=== PATIENT | female | born 1985 | race Asian ===

== ENCOUNTER 2017-07-02 13:35 | Inpatient (IN) | payer OTHER ==
[2017-07-02] MEDS ORDERED: CITRIC ACID/SODIUM CITRATE 30 ML UNIT-DOSE CUP PO ONE (14:45)
[2017-07-02] MEDS ORDERED: ELECTROLYTE-148 SOLN 500 ML IV SCH (14:45)
[2017-07-02 14:56] VITALS: BMI 30.9
[2017-07-02 15:13] LABS: BASO % 0.3 % (0-2.0); EOS % 0.8 % (0-4.5); HEMATOCRIT 37.8 % (32.4-45.2); HEMOGLOBIN 13.4 GM/dL (10.7-15.3); LYMPH % 16.6 % (8-40); MCH 32.1 pg (25.7-33.7); MCHC 35.5 g/dl (32.0-36.0); MEAN CELL VOLUME 90.5 fl (80-96); MONO % 8.3 % (3.8-10.2); PLATELET COUNT 222 K/MM3 (134-434); RBC 4.18 M/mm3 (3.60-5.2); WHITE BLOOD COUNT 9.5 K/mm3 (4.0-10.0)
[2017-07-02] MEDS: ELECTROLYTE-148 SOLN 1,000 ML IV SCH (15:30)
[2017-07-02 15:31] LABS: INR 0.95 (0.82-1.09); PROTHROMBIN TIME (PATIENT) 10.7 SEC (9.7-13.0)
[2017-07-02 15:34] LABS: ACTIVATED PTT 27.1 SECONDS (26.9-34.4)
[2017-07-02 16:14] LABS: ANION GAP 8 (8-16); BLOOD UREA NITROGEN 6 mg/dL (7-18); CALCIUM 8.3 mg/dL (8.5-10.1); CHLORIDE 107 mmol/L (98-107); CO2 22 mmol/L (21-32); CREATININE 0.4 mg/dL (0.55-1.02); GLUCOSE,RANDOM 61 mg/dL (74-106); POTASSIUM 3.8 mmol/L (3.5-5.1); SODIUM 137 mmol/L (136-145)
[2017-07-02] MEDS ORDERED: morphine SULFATE/Preservative Free 0.5 MG/ML (1cc Syringe) ONE (16:55)
[2017-07-02] MEDS ORDERED: BUPIVACAINE 0.75% IN DEXTROSE/PF 2ML AMPULE NR ONE (16:59)
[2017-07-02] MEDS ORDERED: ceFAZolin SODIUM 1 GM VIAL ONE (17:13)
[2017-07-02] MEDS ORDERED: OXYTOCIN 10 UNITS/ML VIAL ONE (17:21)
[2017-07-02] MEDS ORDERED: ONDANSETRON 4 MG/2 ML VIAL IVPUSH PRN (17:38)
[2017-07-02 18:07] LABS: ARTERIAL BLOOD GAS PCO2 41.7 mmHg (35-45); ARTERIAL BLOOD GAS pH 7.37 (7.35-7.45)
[2017-07-02] MEDS ORDERED: OXYTOCIN 20 UNITS in 0.9% NS 20 UNIT/1,000 ML INFUS.BAG IV ONE (18:08)
[2017-07-02 18:13] LABS: VENOUS PH 7.37 (7.32-7.42)
[2017-07-02 18:14] LABS: VENOUS PC02 42.2 mmHg (38-52); VENOUS PO2 28.3 mmHg (28-48)
[2017-07-02 18:19] LABS: ARTERIAL BLD GAS O2 SATURATION 59.5 % (90-98.9); ARTERIAL BLOOD GAS PO2 27.9 mmHg (80-100)
[2017-07-02] MEDS ORDERED: OXYTOCIN 20 UNITS in 0.9% NS 20 UNIT/1,000 ML INFUS.BAG IV SCH ×2 (18:45→22:30)
[2017-07-02] MEDS ORDERED: METHYLERGONOVINE MALEATE 0.2 MG/1 ML AMP IM PRN (20:57)
--- NOTE | 2017-07-02 21:00 | OP ---
DATE OF OPERATION: 07/02/2017 PREOPERATIVE DIAGNOSES: Macrosomia, size greater than dates, and intrauterine at 40 weeks. OPERATION: Primary low transverse section. POSTOPERATIVE DIAGNOSIS: Live female infant. SURGEON: Jenae Clarke MD POSTAL SUPERINTENDENT: JOVAN Woods; unavailable. PROCEDURE: Patient was taken to the operating room, placed in supine position, prepped and draped in the usual sterile fashion. A timeout was performed in accordance with regulation. A Pfannenstiel skin incision was made with a scalpel. Cautery was then used to go through layers of abdominal wall to the level of the fascia. Fascia was cut in the midline, and cautery was then used to open the fascia in the following fashion. Ollie was then used to bluntly and sharply dissect the rectus muscle off the fascia. Muscles split in the midline. Peritoneal cavity was then entered and carried upward and downward. Bladder retractor was then placed. Vesicouterine reflection was then entered. Bladder was bluntly dissected out of the operative field. Scalpel was then used to make a low transverse uterine incision. Incision was carried upward using bandage scissors. A live female was delivered in OT position. Nose and mouth suction performed. Meconium noted. Shoulders were delivered without difficulty. Delayed cord clamping. Cord pH sampling done and cord pH taken. Cord blood sampling done. Placenta was manually extracted from the uterus. Infant was handed to the curer acid drum. Uterus exteriorized and cleaned with clean lap pads. Two myomas were noted on the uterus and approximately 3 cm in size, one anterior and one posterior on the right side. Tubes and ovaries noted to be normal. Incision was then closed using 0 Biosyn suture, first layer of continuous and locking, second layer imbricating the first layer. Hemostasis was achieved. Uterus interiorized. Abdominal cavity cleaned with clean lap pads. Peritoneum closed using 0 Biosyn suture. Muscles approximated in the midline using 0 Biosyn suture. Fascia was then closed using 0 Vicryl suture in 2 parts. Subcutaneous was then closed with interrupted using 0 Biosyn suture. Skin was then closed using 3-0 Vicryl in subcuticular fashion. Wound was washed and dressed. Patient tolerated the procedure well. ESTIMATED BLOOD LOSS: 600 mL JENAE CLARKE M.D. [id number]
[2017-07-02] MEDS: ACETAMINOPHEN 325 MG TABLET (FP) PO PRN (21:45)
[2017-07-02] MEDS ORDERED: IBUPROFEN 800 MG/8 ML IJ IVPB PRN (22:29)
--- NOTE | 2017-07-02 22:49 | HP ---
Past Medical History - Primary Care Physician PCP:: Jenae Clarke - Admission Chief Complaint: 32 yo EDC 06/20 with size greater than dates and desires Section History Source: Patient - Past Medical History ...: 2 ...Para: 0 ...Term: 0 ...: 0 ...Spon : 0 ...Induced : 1 ...Multiple Gestation: 0 ...LMP: 09/14/16 ... Weeks Gestation by Dates: 41.4 ...EDC by Dates: 06/21/17 ...EDC by Sono: 06/30/17 - Past Surgical History Past Surgical History: Yes: None Hx Myomectomy: No Hx Transabdominal Cerclage: No - Smoking History Smoking history: Never smoked Have you smoked in the past 12 months: No Aproximately how many cigarettes per day: 1 - Alcohol/Substance Use Hx Alcohol Use: No History of Substance Use: reports: None - Social History Usual Living Arrangement: Yes: With Spouse History of Recent Travel: No Home Medications - Allergies Allergies/Adverse Reactions: Allergies Allergy/AdvReac Type Severity Reaction Status Date / Time No Known Allergies Allergy Verified 07/02/17 14:56 - Home Medications Home Medications: Ambulatory Orders Pnv No.95/Ferrous Fum/Folic AC [ Vitamin Tablet] 1 each PO DAILY Ranitidine HCl [Zantac] 150 mg PO DAILY 07/02/17 Review of Systems - Review of Systems Constitutional: reports: No Symptoms Eyes: reports: No Symptoms HENT: reports: No Symptoms Neck: reports: No Symptoms Cardiovascular: reports: No Symptoms Respiratory: reports: No Symptoms Gastrointestinal: reports: No Symptoms Genitourinary: reports: No Symptoms Breasts: reports: No Symptoms Reported Musculoskeletal: reports: No Symptoms Integumentary: reports: No Symptoms Neurological: reports: No Symptoms Endocrine: reports: No Symptoms Hematology/Lymphatic: reports: No Symptoms Psychiatric: reports: No Symptoms Physical Exam - Maternity Vital Signs: Vital Signs Temperature 97.6 F 07/02/17 18:50 Pulse Rate 80 07/02/17 18:50 Respiratory Rate 18 07/02/17 18:50 Blood Pressure 96/54 07/02/17 18:50 O2 Sat by Pulse Oximetry (%) 96 07/02/17 18:50 Constitutional: Yes: Well Nourished, No Distress Neck: Yes: WNL Cardiovascular: Yes: WNL Lungs: Clear to auscultation - Abdominal Exam/OB Fundal Height: 41 Number of Fetuses: Single Presentation: Vertex Category: I Decelerations: None - Vaginal Exam/OB Vaginal Bleediing: No Amniotic Membrane Status: Ruptured Amniotic Fluid: Yes: Meconium Stained Presentation: Vertex/Position - Physical Exam Musculoskeletal: Yes: WNL Extremities: Yes: WNL Edema: No Psychiatric: Yes: WNL, Alert, Oriented - Labs Lab Results: CBC, BMP 07/02/17 14:10 07/02/17 14:10 Hemorrhage Risk Assessment - Risk Factors Medium Risk Factors: Yes: EFW greater than 4000g Risk Score: 1 Risk Level: Medium Risk Problem List - Problems (1) Size of fetus inconsistent with dates in third trimester Code(s): O26.843 - UTERINE SIZE-DATE DISCREPANCY, THIRD TRIMESTER (2) 40 weeks gestation of Code(s): Z3A.40 - 40 WEEKS GESTATION OF Assessment/Plan MAcosomia SIze greater than dates IUP at 40 weeks Plan Primary Section
--- NOTE | 2017-07-02 22:57 | OP ---
Operative Note - Note: Operative Date: 07/02/17 Pre-Operative Diagnosis: Macrosomia. size greater than dates. IUP at 40 week Operation: Primary Low transverse Section Findings: Live female infant serosal myomas noted anterior and posterior - 3 cm X2 Post-Operative Diagnosis: Same as Pre-op Surgeon: Jenae Clarke Dialysis Chief Equipment Technician: Ashish Thomas Anesthesia: General, Spinal Estimated Blood Loss (mls): 600 Operative Report Dictated: Yes
[2017-07-02] MEDS ORDERED: WITCH HAZEL 50% (TUCKS) 40 PAD/JAR PAD TP PRN (22:58)
[2017-07-02] MEDS ORDERED: BENZOCAINE 28 GM HEMORRHOIDAL OINTMENT PR PRN (22:58)
[2017-07-02] MEDS ORDERED: diphenhydrAMINE HCL 25 MG CAPSULE (FP) PO PRN (22:58)
[2017-07-02] MEDS ORDERED: BENZOCAINE 20% 57 GM BOTTLE TP PRN (22:58)
[2017-07-03] MEDS ORDERED: OXYTOCIN 20 UNITS in 0.9% NS 20 UNIT/1,000 ML INFUS.BAG IV ONE (01:34)
[2017-07-03] MEDS: ELECTROLYTE-148 SOLN 1,000 ML IV SCH (02:03)
[2017-07-03] MEDS: IBUPROFEN 600 MG TABLET (FP) PO PRN ×3 (02:13→22:26)
[2017-07-03] MEDS: ACETAMINOPHEN 325 MG TABLET (FP) PO PRN ×5 (02:14→22:28)
--- NOTE | 2017-07-03 02:38 | PN ---
Post Progress Note - Subjective Subjective: 32 yo Para 1 status post primary . Doing well. Post Day: 1 Type of Delivery: Primary C/S Vital Signs: Vital Signs Temperature 98.3 F 07/02/17 22:00 Pulse Rate 90 07/02/17 22:00 Respiratory Rate 18 07/03/17 01:00 Blood Pressure 112/71 07/02/17 22:00 O2 Sat by Pulse Oximetry (%) 96 07/02/17 18:50 Breast Exam: Yes: Soft Uterus: Yes: Fundus Firm Incision: Yes: Dressing dry and intact Abdomen/GI: Yes: Abdomen soft Lochia: Yes: Rubra Lochia, amount: Small Extremities: Yes: Calves non-tender Activity: Ambulating - Labs Labs: CBC WBC 9.5 K/mm3 (4.0-10.0) D 07/02/17 14:10 RBC 4.18 M/mm3 (3.60-5.2) 07/02/17 14:10 Hgb 13.4 GM/dL (10.7-15.3) 07/02/17 14:10 Hct 37.8 % (32.4-45.2) 07/02/17 14:10 MCV 90.5 fl (80-96) 07/02/17 14:10 MCH 32.1 pg (25.7-33.7) 07/02/17 14:10 MCHC 35.5 g/dl (32.0-36.0) 07/02/17 14:10 RDW 14.0 % (11.6-15.6) D 07/02/17 14:10 Plt Count 222 K/MM3 (134-434) D 07/02/17 14:10 MPV 8.0 fl (7.5-11.1) 07/02/17 14:10 Neutrophils % 74.0 % (42.8-82.8) D 07/02/17 14:10 Lymphocytes % 16.6 % (8-40) D 07/02/17 14:10 Monocytes % 8.3 % (3.8-10.2) 07/02/17 14:10 Eosinophils % 0.8 % (0-4.5) 07/02/17 14:10 Basophils % 0.3 % (0-2.0) 07/02/17 14:10 Problem List - Problems (1) Status post primary low transverse section Code(s): Z98.891 - HISTORY OF UTERINE SCAR FROM PREVIOUS SURGERY Assessment/Plan Status post primary Ambulation Analgesia as needed Continue routine post op care
[2017-07-03] MEDS: SIMETHICONE 80 MG TAB.CHEW (FP) PO PRN ×4 (07:22→22:25)
[2017-07-03 08:04] LABS: BASO % 0.2 % (0-2.0); EOS % 1.4 % (0-4.5); HEMATOCRIT 32.3 % (32.4-45.2); HEMOGLOBIN 11.4 GM/dL (10.7-15.3); LYMPH % 13.3 % (8-40); MCHC 35.3 g/dl (32.0-36.0); MEAN CELL VOLUME 90.5 fl (80-96); MEAN PLT VOLUME 7.7 fl (7.5-11.1); MONO % 9.8 % (3.8-10.2); NEUT % 75.3 % (42.8-82.8); PLATELET COUNT 189 K/MM3 (134-434); RBC 3.57 M/mm3 (3.60-5.2); RDW 13.8 % (11.6-15.6)
[2017-07-03] MEDS: PRENATAL VITAMINS W/ FOLIC ACID TABLET (FP) PO SCH (09:40)
[2017-07-03] MEDS ORDERED: BISACODYL 10 MG SUPP.RECT RC PRN (10:00)
[2017-07-03] MEDS ORDERED: oxyCODONE HCL 5 MG TABLET PO PRN ×3 (11:59→22:58)
[2017-07-03] MEDS ORDERED: oxyCODONE HCL 5 MG TABLET ONE (12:01)
[2017-07-03] MEDS: oxyCODONE HCL 5 MG TABLET PO PRN (12:03)
--- NOTE | 2017-07-03 15:03 | PN ---
Progress Note (short form) - Note Progress Note: Anesthesia postop note 32 y/o F s/p spinal anesthesia for section, duramorph for postop pain management POD#1, vss, aaox3, no complaints, pain well controlled. No anesthesia complications.
[2017-07-03] MEDS: SENNOSIDES/DOCUSATE COMBO (SENNA PLUS) TABLET (UD) PO SCH (22:29)
[2017-07-04] MEDS: ACETAMINOPHEN 325 MG TABLET (FP) PO PRN ×4 (05:12→20:44)
[2017-07-04] MEDS: IBUPROFEN 600 MG TABLET (FP) PO PRN ×4 (05:12→20:43)
[2017-07-04] MEDS: SIMETHICONE 80 MG TAB.CHEW (FP) PO PRN ×3 (05:13→20:39)
--- NOTE | 2017-07-04 07:28 | PN ---
Progress Note (SOAP) - Current Medications Current Medications: Active Medications Acetaminophen (Tylenol -) 650 mg PO Q4H PRN PRN Reason: PAIN 6-10 Last Admin: 07/04/17 05:12 Dose: 650 mg Benzocaine (Americaine 20% Sherman -) 1 spray TP PRN PRN PRN Reason: Pain - Topical Benzocaine (Americaine Ointment -) 1 applic MI PRN PRN PRN Reason: Pain - Topical Bisacodyl (Dulcolax Suppository -) 10 mg RC DAILY PRN PRN Reason: CONSTIPATION Diphenhydramine HCl (Benadryl Injection -) 25 mg IVPUSH Q4H PRN PRN Reason: Pruritis Diphenhydramine HCl (Benadryl -) 25 mg PO Q6H PRN PRN Reason: FOR ITCHING Parenteral Electrolytes (Plasma-Lyte 148 -) 1,000 mls @ 125 mls/hr IV [facility] Last Admin: 07/03/17 02:03 Dose: 125 mls/hr Oxytocin/Sodium Chloride (Normal Saline+20 Units Oxytocin -) 20 unit in 1,000 mls @ 125 mls/hr IV [facility] Last Admin: 07/02/17 18:45 Dose: 125 mls/hr Oxytocin/Sodium Chloride (Normal Saline+20 Units Oxytocin -) 20 unit in 1,000 mls @ 125 mls/hr IV [facility] Last Admin: 07/02/17 22:30 Dose: Not Given Ibuprofen (Motrin -) 600 mg PO Q4H PRN PRN Reason: PAIN LEVEL 1-5 Last Admin: 07/04/17 05:12 Dose: 600 mg Ibuprofen (Caldolor Injection -) 800 mg IVPB Q8H PRN PRN Reason: FEVER Ibuprofen (Motrin -) 600 mg PO Q4H PRN PRN Reason: PAIN LEVEL 1 - 3 Methylergonovine Maleate (Methergine Injection -) 0.2 mg IM Q4H PRN PRN Reason: EXCESSIVE BLEEDING (L&D) Ondansetron HCl (Zofran Injection) 4 mg IVPUSH Q4H PRN PRN Reason: NAUSEA Oxycodone HCl (Roxicodone -) 5 mg PO Q4H PRN PRN Reason: PAIN LEVEL 1-5 Last Admin: 07/03/17 12:03 Dose: 5 mg Oxycodone HCl (Roxicodone -) 10 mg PO Q4H PRN PRN Reason: PAIN LEVEL 6-10 Last Admin: 07/03/17 16:20 Dose: 10 mg Multivit/Folic Acid/Iron ( Vitamins (Sjr) -) 1 tab PO DAILY BILLY Last Admin: 07/03/17 09:40 Dose: 1 tab Senna/Docusate Sodium (Pericolace -) 2 tablet PO HS BILLY Last Admin: 07/03/17 22:29 Dose: 2 tablet Simethicone (Mylicon -) 80 mg PO Q4H PRN PRN Reason: GAS Last Admin: 07/04/17 05:13 Dose: 80 mg Witch Danelle/Glycerin (Tucks Pads -) 1 pad TP PRN PRN PRN Reason: Pain - Topical - Objective Vital Signs: Vital Signs Temperature 98.6 F 07/03/17 22:00 Pulse Rate 98 H 07/03/17 22:00 Respiratory Rate 18 07/03/17 22:00 Blood Pressure 103/62 07/03/17 22:00 O2 Sat by Pulse Oximetry (%) 96 07/02/17 18:50 Constitutional: Yes: Well Nourished, No Distress Respiratory: Yes: WNL Gastrointestinal: Yes: WNL, Normal Bowel Sounds, Soft Genitourinary: Yes: WNL ....Post : Yes: Uterus firm, Uterus non-tender Breast(s): Yes: WNL Musculoskeletal: Yes: WNL Extremities: Yes: WNL Edema: No Wound/Incision: Yes: Steri Strips, Open to air Neurological: Yes: WNL, Alert, Oriented Labs Lab Results: CBC, BMP 07/03/17 06:00 07/02/17 14:10 Problem List - Problems (1) Size of fetus inconsistent with dates in third trimester Code(s): O26.843 - UTERINE SIZE-DATE DISCREPANCY, THIRD TRIMESTER (2) 40 weeks gestation of Code(s): Z3A.40 - 40 WEEKS GESTATION OF (3) Status post primary low transverse section Code(s): Z98.891 - HISTORY OF UTERINE SCAR FROM PREVIOUS SURGERY Assessment/Plan POD 2 Plan oob continue present management
[2017-07-04] MEDS: oxyCODONE HCL 5 MG TABLET PO PRN (07:34)
[2017-07-04] MEDS: PRENATAL VITAMINS W/ FOLIC ACID TABLET (FP) PO SCH (09:30)
[2017-07-04] MEDS ORDERED: HYDROCORTISONE 1% TOPICAL CREAM 30 GM TUBE TP PRN (13:08)
[2017-07-04] MEDS: SENNOSIDES/DOCUSATE COMBO (SENNA PLUS) TABLET (UD) PO SCH (22:52)
--- NOTE | 2017-07-05 03:03 | DS ---
Physical Exam-AIRCRAFT ORDNANCE TECHNICIAN Vital Signs: Vital Signs Temperature 98.4 F 07/04/17 22:00 Pulse Rate 92 H 07/04/17 22:00 Respiratory Rate 18 07/04/17 22:00 Blood Pressure 124/69 07/04/17 22:00 O2 Sat by Pulse Oximetry (%) 96 07/02/17 18:50 Constitutional: Yes: Well Nourished Eyes: Yes: Conjunctiva Clear HENT: Yes: Atraumatic Neck: Yes: Supple Cardiovascular: Yes: Regular Rate and Rhythm Respiratory: Yes: Regular Gastrointestinal: Yes: Normal Bowel Sounds External Genitalia: Yes: Normal Vaginal Exam: Yes: Normal Cervix: Yes: Normal Uterus: Yes: Firm ....Post : Yes: Uterus firm Neurological: Yes: Alert, Oriented ...Motor Strength: WNL Psychiatric: Yes: Alert, Oriented Labs: CBC, BMP 07/03/17 06:00 07/02/17 14:10 Delivery - Delivery Type of Anesthesia: Spinal Episiotomy/Laceration: None EBL (cc): 600 Delivery, Single - Stages of Labor Date of Delivery: 07/02/17 Time of Delivery: 17:20 Time Placenta Delivered: 17:23 - Condition of Child Care Group Leader/Bulk Plant Operator Present: Yes Name: Dariela Huerta Gender: Female Weight: 8 lb 4 oz Position: OT Total Hours ROM (Hrs/Mins): 58min - 1 Minute Total Score: 9 5 Minutes Total Score: 9 - [place] Feeding Plan Initial Plan: Elected not to breastfeed exclusively throughout hospitalization Discharge Summary Reason For Visit: Current Active Problems Size of fetus inconsistent with dates in third trimester (Acute) 40 weeks gestation of (Acute) Status post primary low transverse section (Acute) Procedures: Principal: Primary Hospital Course: Routine post op care Condition: Good - Instructions Diet, Activity, Other Instructions: Regular diet No driving, no lifting x 4 weeks F/U with MD in 2 weeks Disposition: HOME - Home Medications Comprehensive Discharge Medication List: Ambulatory Orders Pnv No.95/Ferrous Fum/Folic AC [ Vitamin Tablet] 1 each PO DAILY Ranitidine HCl [Zantac] 150 mg PO DAILY 07/02/17
[2017-07-05] MEDS: ACETAMINOPHEN 325 MG TABLET (FP) PO PRN ×4 (05:19→20:33)
[2017-07-05] MEDS: IBUPROFEN 600 MG TABLET (FP) PO PRN ×4 (05:19→20:35)
[2017-07-05] MEDS: SIMETHICONE 80 MG TAB.CHEW (FP) PO PRN ×3 (05:21→15:06)
--- NOTE | 2017-07-05 06:13 | PN ---
Post Progress Note - Subjective Subjective: 32 yo Para 1 status post primary , seen and evaluated. She c/o itching and rash around the abdomen. She was given hydrocortisone cream to apply on the belly. Post Day: 3 Type of Delivery: Primary C/S Vital Signs: Vital Signs Temperature 98.4 F 07/04/17 22:00 Pulse Rate 92 H 07/04/17 22:00 Respiratory Rate 18 07/04/17 22:00 Blood Pressure 124/69 07/04/17 22:00 O2 Sat by Pulse Oximetry (%) 96 07/02/17 18:50 Breast Exam: Yes: Soft Uterus: Yes: Fundus Firm Incision: Yes: Dressing dry and intact Abdomen/GI: Yes: Abdomen soft, Other (+ rash) Lochia, amount: Small Extremities: Yes: Calves non-tender Perineum: Yes: Intact Activity: Ambulating - Labs Labs: CBC WBC 10.0 K/mm3 (4.0-10.0) 07/03/17 06:00 RBC 3.57 M/mm3 (3.60-5.2) L 07/03/17 06:00 Hgb 11.4 GM/dL (10.7-15.3) D 07/03/17 06:00 Hct 32.3 % (32.4-45.2) L 07/03/17 06:00 MCV 90.5 fl (80-96) 07/03/17 06:00 MCH 32.0 pg (25.7-33.7) 07/03/17 06:00 MCHC 35.3 g/dl (32.0-36.0) 07/03/17 06:00 RDW 13.8 % (11.6-15.6) 07/03/17 06:00 Plt Count 189 K/MM3 (134-434) 07/03/17 06:00 MPV 7.7 fl (7.5-11.1) 07/03/17 06:00 Neutrophils % 75.3 % (42.8-82.8) 07/03/17 06:00 Lymphocytes % 13.3 % (8-40) 07/03/17 06:00 Monocytes % 9.8 % (3.8-10.2) 07/03/17 06:00 Eosinophils % 1.4 % (0-4.5) 05/01/18 06:00 Basophils % 0.2 % (0-2.0) 07/03/17 06:00 Problem List - Problems (1) Status post primary low transverse section Code(s): Z98.891 - HISTORY OF UTERINE SCAR FROM PREVIOUS SURGERY Assessment/Plan Status post Rash and itching Continue Hydrocortisone Start Benadryl Consider D/C home tomorrow
[2017-07-05 08:51] LABS: BASO % 0.5 % (0-2.0); EOS % 1.9 % (0-4.5); HEMOGLOBIN 11.7 GM/dL (10.7-15.3); LYMPH % 17.5 % (8-40); MCH 31.6 pg (25.7-33.7); MCHC 34.4 g/dl (32.0-36.0); MEAN CELL VOLUME 91.8 fl (80-96); MEAN PLT VOLUME 7.7 fl (7.5-11.1); MONO % 8.3 % (3.8-10.2); NEUT % 71.8 % (42.8-82.8); PLATELET COUNT 268 K/MM3 (134-434); WHITE BLOOD COUNT 10.5 K/mm3 (4.0-10.0)
[2017-07-05] MEDS: PRENATAL VITAMINS W/ FOLIC ACID TABLET (FP) PO SCH (09:57)
[2017-07-05] MEDS: SENNOSIDES/DOCUSATE COMBO (SENNA PLUS) TABLET (UD) PO SCH (21:18)
[2017-07-06] MEDS: PRENATAL VITAMINS W/ FOLIC ACID TABLET (FP) PO SCH (10:56)
[2017-07-06] MEDS: SIMETHICONE 80 MG TAB.CHEW (FP) PO PRN (11:37)
[2017-07-06] MEDS: ACETAMINOPHEN 325 MG TABLET (FP) PO PRN (11:37)
[2017-07-06] MEDS: IBUPROFEN 600 MG TABLET (FP) PO PRN (11:37)
[2017-07-06 13:09] VITALS: BP 103/61; PULSE 85; TEMP 98.6
--- NOTE | 2017-07-06 17:17 | PATH ---
Surgical Pathology Report Patient Name: GABBY COTTON Med. Rec. #: [id number] /Age/Gender: 1985 (Age: 32) / F Account: [id number] Location: [facility] OBS/CUSTOMER SALES SPECIALIST Taken: 07/02/2017 Received: 07/03/2017 Reported: 07/06/2017 Physicians: Jenae Clarke M.D. Specimen(s) Received PLACENTA Clinical History , 40.2 weeks, macrosomia Low-lying placenta-resolved, cervical fibroid IAB x1; 07/2013 Final Diagnosis PLACENTA: MATURE THIRD TRIMESTER PLACENTA. THREE-VESSEL CORD MEMBRANES, NO DIAGNOSTIC ABNORMALITIES. Electronically Signed Rayne Smiley M.D. Gross Description The specimen is received fresh labeled placenta and is a 555 gram, 23.0 x 15.5 x 2.7 cm. placenta with attached membranes and umbilical cord. The attached membranes are hernandez, translucent with focal opacities and insert marginally. The umbilical cord measures 6 cm. in length and averages 1 cm. in diameter. The cord inserts at the margin. No true knots or strictures are identified. Cut surface of the umbilical cord reveals 3 vessels. The surface is albert-blue with minimal fibrin deposition and appropriate caliber vessels. The maternal surface is red-brown with focal defects. Sectioning reveals red-brown, spongy parenchyma. No lesions are identified. Band Straightener sections are submitted in three cassettes as follows: 1- membrane rolls and umbilical cord; 2-3- full thickness sections of placenta. 07/05/2017 saudi07/05/2017
== END 2017-07-06 12:50 | disposition home or self-care (01) | DRG 766 ==
LOC: JLDR 13:35 → J3W 20:20
PROVIDERS: ADMIT Obstetrics & Gynecology; ATTEND Obstetrics & Gynecology
PROC: 10D00Z1 Extraction of Products of Conception, Low, Open Approach (ICD-10-PCS; principal; 2017-07-02)
DX: O36.63X0 Maternal care for excessive fetal growth, third trimester, not applicable or unspecified (principal); O77.0 Labor and delivery complicated by meconium in amniotic fluid; O34.13 Maternal care for benign tumor of corpus uteri, third trimester; D25.9 Leiomyoma of uterus, unspecified; O75.89 Other specified complications of labor and delivery; R21 Rash and other nonspecific skin eruption; Z3A.40 40 weeks gestation of pregnancy; Z37.0 Single live birth
CPT/HCPCS: 36415; 36600; 80048; 82803; 85025; 85610; 85730; 86593; 86850; 86900; 86901; 88307-TC

== ENCOUNTER 2020-07-19 06:30 | Day surgery (SDC) | payer OTHER ==
[2020-07-16 17:49] VITALS: BMI 25.6
[2020-07-19] MEDS ORDERED: ceFAZolin SODIUM 1 GM VIAL IVPB ONE (07:49)
[2020-07-19] MEDS ORDERED: IBUPROFEN 600 MG TABLET (FP) PO PRN (08:29)
[2020-07-19] MEDS ORDERED: IBUPROFEN 800 MG/8 ML IJ IVPB PRN (08:29)
[2020-07-19] MEDS ORDERED: ONDANSETRON 4 MG/2 ML VIAL IVPUSH PRN (08:29)
[2020-07-19] MEDS ORDERED: oxyCODONE HCL 5 MG TABLET PO PRN ×2 (08:29→08:51)
[2020-07-19] MEDS ORDERED: ELECTROLYTE-148 SOLN 1,000 ML IV SCH (08:30)
[2020-07-19] MEDS ORDERED: LACTATED RINGERS SOLUTION 1,000 ML IV SCH (09:00)
[2020-07-19 09:06] VITALS: TEMP 97.7
[2020-07-19 10:05] VITALS: BP 119/64; PULSE 62
== END 2020-07-19 11:03 | disposition home or self-care (01) ==
LOC: JASU-SURG 06:30
PROVIDERS: ATTEND Obstetrics & Gynecology
PROC: 10D17ZZ Extraction of Products of Conception, Retained, Via Natural or Artificial Opening (ICD-10-PCS; principal; 2020-07-19 07:30)
DX: O02.1 Missed abortion (principal)
CPT/HCPCS: 88305-TC; 94760

== ENCOUNTER 2022-01-18 15:58 | Emergency (ER) | payer OTHER, BC ==
[2022-01-18 16:02] VITALS: BP 110/72; PULSE 75; RESP 18; TEMP 98; BMI 24.9
[2022-01-18] MEDS ORDERED: DIPHTH,PERTUSS(ACELL),TET 0.5 ML DISP.SYRIN IM ONE (16:18)
[2022-01-18] MEDS ORDERED: BACITRACIN 15 GM TUBE TOPICAL OINTMENT TP ONE (16:21)
== END 2022-01-18 16:24 | disposition home or self-care (01) ==
LOC: JERFT 15:58
PROC: 3E0234Z Introduction of Serum, Toxoid and Vaccine into Muscle, Percutaneous Approach (ICD-10-PCS; principal; 2022-01-18)
DX: S61.451A Open bite of right hand, initial encounter (principal); W50.3XXA Accidental bite by another person, initial encounter
CPT/HCPCS: 90715; 99284-25

== ENCOUNTER 2022-04-09 19:36 | Emergency (ER) | payer BC, OTHER ==
[2022-04-09] MEDS ORDERED: FAMOTIDINE 20 MG/50 ML IVPB 20 MG/50 ML MG IVPB ONE (19:43)
[2022-04-09 19:54] VITALS: BP 140/95; PULSE 76; RESP 18; TEMP 98.1; BMI 25.2
[2022-04-09] MEDS ORDERED: ACETAMINOPHEN 1000 MG/100 ML BAG IVPB ONE (20:10)
[2022-04-09] MEDS ORDERED: ACETAMINOPHEN INJECTION 100 ML IVPB ONE (20:13)
[2022-04-09 20:29] LABS: ALBUMIN 4.1 g/dl (3.4-5.0); CALCIUM 9.1 mg/dl (8.5-10); CREATININE 0.8 mg/dl (0.55-1.3); HEMATOCRIT 40.6 % (32.4-45.2); HEMOGLOBIN 14.2 G/dL (10.7-15.3); MCH 32.8 pg (25.7-33.7); MCHC 34.9 g/dl (32.0-36.0); MEAN PLT VOLUME 7.9 fl (7.5-11.1); PLATELET COUNT 217.4 10^3/uL (134-434); RBC 4.32 10^6/uL (3.60-5.2); RDW 12.6 % (11.6-15.6); TOT PROT 7.7 g/dl (6.4-8.2); WHITE BLOOD COUNT 7.2 10^3/uL (4.0-10.8)
[2022-04-09 22:35] LABS: EPITHELIAL CELLS FEW /hpf
== END 2022-04-09 22:47 | disposition home or self-care (01) ==
LOC: FER 19:36
PROC: 3E0333Z Introduction of Anti-inflammatory into Peripheral Vein, Percutaneous Approach (ICD-10-PCS; principal; 2022-04-09)
PROC: 3E033GC Introduction of Other Therapeutic Substance into Peripheral Vein, Percutaneous Approach (ICD-10-PCS; 2022-04-09)
DX: K29.90 Gastroduodenitis, unspecified, without bleeding (principal)
CPT/HCPCS: 36415; 74177-TC; 80053; 81003; 81015; 83690; 84703; 85025; 86677; 99285-25; Q9967

== ENCOUNTER → 2022-08-07 | Day surgery (SDC) | payer BC ==
[2022-08-03 09:15] VITALS: BMI 25.2
[~2022-08-07] MED LIST: MIDAZOLAM HCL 2 MG/2 ML SINGLE DOSE VIAL ONE
[2022-08-07 08:42] VITALS: TEMP 98
[2022-08-07 09:12] VITALS: RESP 18
[2022-08-07 09:25] VITALS: BP 108/83; PULSE 62
== END | disposition home or self-care (01) ==
LOC: JASU-ENDO 05:29
PROVIDERS: ATTEND Internal Medicine Gastroenterology
PROC: 0DB68ZX Excision of Stomach, Via Natural or Artificial Opening Endoscopic, Diagnostic (ICD-10-PCS; 2022-08-07)
PROC: 0DB78ZX Excision of Stomach, Pylorus, Via Natural or Artificial Opening Endoscopic, Diagnostic (ICD-10-PCS; 2022-08-07)
PROC: 0DBN8ZX Excision of Sigmoid Colon, Via Natural or Artificial Opening Endoscopic, Diagnostic (ICD-10-PCS; principal; 2022-08-07 08:00)
DX: D12.5 Benign neoplasm of sigmoid colon (principal); K64.8 Other hemorrhoids; K64.4 Residual hemorrhoidal skin tags; K29.50 Unspecified chronic gastritis without bleeding; K44.9 Diaphragmatic hernia without obstruction or gangrene
CPT/HCPCS: 81025; 88305-TC; 88342-TC